=== PATIENT | male | born 1965 | race African-American/Black ===

== ENCOUNTER 2018-11-17 17:02 | Emergency (ER) | payer SELFPAY ==
[~2018-11-17] VITALS: Ht 172.7 cm; Wt 88.8 kg
[2018-11-17 17:24] VITALS: BP 166/99; PULSE 93; RESP 18; Ht 172.7 cm; Wt 88.8 kg
== END 2018-11-17 20:56 | disposition left against medical advice (07) ==
LOC: E/R 17:02
DX: Z53.21 Procedure and treatment not carried out due to patient leaving prior to being seen by health care provider (principal)

== ENCOUNTER 2019-02-23 16:12 | Emergency (ER) | payer MEDICAID ==
[~2019-02-23] VITALS: Ht 172.7 cm; Wt 81.8 kg
--- NOTE | 2019-02-23 16:14 | ERD ---
ER Documentation Chief Complaint Chief Complaint Agitation HPI The patient is a 53-year-old male, presenting to the ER because of suicidal ideation. He was found on the roof of the rehab center with suicidal gesture. He was given Suboxone and Valium and complained that he is sedated. He was therefore transferred to emergency department for further evaluation. He is quite awake, alert, agitated and in cooperative with history and physical Medical/surgical history/social history/review system: Unable to obtain because he is not cooperated Allergies Allergies: Coded Allergies: chlordiazepoxide (Verified Allergy, Unknown, 11/17/18) Physical Exam Vitals Vital Signs Date Temp Pulse Resp B/P (MAP) Pulse Ox O2 O2 Flow FiO2 Time Delivery Rate 02/23/19 94 22 125/76 99 22:00 (92) 02/23/19 98.0 77 18 118/71 100 16:55 (87) Physical Exam Const: No acute distress. Head: Atraumatic. Eyes: Normal Conjunctiva. ENT: Normal External Ears, Nose and Mouth. Neck: Full range of motion. No meningismus. Resp: Clear to auscultation bilaterally. Cardio: Regular rate and rhythm. Abd: Soft, non distended, normal bowel sounds, non tender. Skin: No petechiae or rashes. Back: No midline or flank tenderness. Ext: No cyanosis, or edema. Neur: Awake and alert. No focal deficit Psych: Agitated, noncooperative Result Diagram: 02/23/19 1643 02/23/19 1642 Results 24 hrs Laboratory Tests Test 02/23/19 16:42 02/23/19 16:43 02/23/19 17:55 02/23/19 17:56 Sodium Level 142 mmol/L Potassium Level 4.1 mmol/L Chloride Level 104 mmol/L Carbon Dioxide 29 mmol/L Level Anion Gap 9 Blood Urea 9 mg/dl Nitrogen Creatinine 1.10 mg/dl Est Glomerular > 60 mL/min Filtrat Rate mL/min Glucose Level 111 mg/dl Calcium Level 9.2 mg/dl Total Bilirubin 0.7 mg/dl Direct Bilirubin 0.00 mg/dl Indirect 0.7 mg/dl Bilirubin Aspartate Amino 37 IU/L Transf (AST/SGOT) Alanine 33 IU/L Aminotransferase (ALT/SGPT) Alkaline 70 IU/L Phosphatase Total Protein 7.9 g/dl Albumin 4.4 g/dl Globulin 3.50 g/dl Albumin/Globulin 1.25 Ratio Salicylates Level < 1.0 mg/dl Acetaminophen < 10.0 ug/ml Level Ethyl Alcohol < 10.0 mg/dl Level White Blood Count 4.8 10^3/ul Red Blood Count 5.21 10^6/ul Hemoglobin 14.5 g/dl Hematocrit 43.1 % Mean Corpuscular 82.7 fl Volume Mean Corpuscular 27.8 pg Hemoglobin Mean Corpuscular 33.6 g/dl Hemoglobin Concen t Red Cell 14.8 % Distribution Width Platelet Count 242 10^3/UL Mean Platelet 10.2 fl Volume Immature 0.400 % Granulocytes % Neutrophils % 46.7 % Lymphocytes % 39.0 % Monocytes % 7.7 % Eosinophils % 5.8 % Basophils % 0.4 % Nucleated Red 0.0 /100WBC Blood Cells % Immature 0.020 10^3/ul Granulocytes # Neutrophils # 2.2 10^3/ul Lymphocytes # 1.9 10^3/ul Monocytes # 0.4 10^3/ul Eosinophils # 0.3 10^3/ul Basophils # 0.0 10^3/ul Nucleated Red 0.0 10^3/ul Blood Cells # Urine Color YELLOW Urine Clarity CLEAR Urine pH 7.0 Urine Specific 1.018 [place] Urine Ketones NEGATIVE mg/dL Urine Nitrite NEGATIVE mg/dL Urine Bilirubin NEGATIVE mg/dL Urine 1+ mg/dL Urobilinogen Urine Leukocyte NEGATIVE Tera/ul Esterase Urine Hemoglobin NEGATIVE mg/dL Urine Glucose NEGATIVE mg/dL Urine Total NEGATIVE mg/dl Protein Urine Opiates NEGATIVE Screen Urine NEGATIVE Barbiturates Urine POSITIVE Amphetamines Screen Urine POSITIVE Benzodiazepines Screen Urine Cocaine POSITIVE Screen Urine POSITIVE Cannabinoids Current Medications Medications Dose Sig/William Start Time Status Last (Trade) Ordered Route PRN Stop Time Admin Dose Reason Admin Lorazepam 2 mg ONCE ONCE 02/23/19 DC 02/23/19 (Ativan) IM 18:00 18:26 02/23/19 18:01 Haloperidol 5 mg ONCE ONCE 02/23/19 DC 02/23/19 (Haldol) IM 18:00 22:00 02/23/19 18:01 50 mg ONCE ONCE 02/23/19 DC 02/23/19 Diphenhydrami IM 18:00 18:26 ne HCl 02/23/19 18:01 (Benadryl) Olanzapine 10 mg Q12H PRN 02/23/19 (Zyprexa) IM AGITATION 22:00 Lorazepam 2 mg Q12 IM 02/23/19 DC (Ativan) 22:00 02/23/19 22:00 50 mg Q12 IM 02/23/19 DC Diphenhydrami 22:00 ne HCl 02/23/19 22:00 (Benadryl) Lorazepam 2 mg Q12H PRN 02/23/19 02/23/19 (Ativan) IM AGITATION 22:00 22:00 50 mg Q12H PRN 02/23/19 02/23/19 Diphenhydrami IM AGITATION 22:00 22:00 ne HCl (Benadryl) Procedures/MDM UA, UDS pending MEDICAL MAKING DECISION: The patient is a 53-year-old male, presenting with acute psychosis. He did not respond to counseling, he was treated with Benadryl 50 mg IM, Haldol 5 mg IM, Ativan 2 mg IM with good response. He was resting for a few hours. He was evaluated by telepsychiatrist who put on a 5150 hold, when he wake up he becomes more agitated, he was treated with Zyprexa 10 mg IM and Ativan 2 mg IM as recommended by psychiatrist The differential diagnoses considered include but are not limited to drug- induced psychosis, psychosis, psychiatric illness, medical noncompliance Departure Diagnosis: Primary Impression: Psychosis Condition: Stable Comments The psychiatrist medications were ordered He is clear for psychiatric evaluation and admission KESHAV MARX MD Feb 23, 2019 16:14
[2019-02-23 16:55] VITALS: Ht 172.7 cm; Wt 81.8 kg
--- NOTE | 2019-02-23 17:29 | PSY ---
Date/Time of Note Date/Time of Note DATE: 02/23/19 TIME: 17:04 Psychiatric Subjective Eval Consent Pt consented to telemedicine: Yes Subjective Evaluation Chief Complaint: PT bought to the ED by RA for possible overdose. History of present illness 53 yo male BIB EMS from a drug rehab. Pt has a hx opiate use disorder; at the rehab he was started on suboxone and valium. Pt was found standing on the edge of the roof today. In ED pt is agitated, he refused to speak to me unless he would be allowed to stand up, c/o he is drowsy and he is falling asleep. Pt is irritable, tangential, demands to be allowed to stand up so he wouldn't fall asleep; however, he does not appear sedated at all, rather agitated and loud, pressured speech. Then advised him, it is safe for him to stay in bed for his own safety he refused to speak to me. Past psychiatric history unknown Medical history Problems Medical Problems: (1) Patient left after triage Status: Acute Allergies: Coded Allergies: chlordiazepoxide (Verified Allergy, Unknown, 11/17/18) Substance Abuse Substance abuse history: Yes Prior substance abuse treatmen: Yes Social History Marital status: Psychiatric Objective Eval Mental Status Examination: Appearance: Disheveled Eye Contact: Fair Psychomotor Activity: Agitated Behavior: Agitated Speech: Pressured AFFECT: Libile Mood: Irritable Though Process: Tangential Suicidal: Yes Cognition: Alert Insight: Impared Judgement: Impared Laboratory Results Laboratory Tests Test 02/23/19 16:43 White Blood Count 4.8 10^3/ul Red Blood Count 5.21 10^6/ul Hemoglobin 14.5 g/dl Hematocrit 43.1 % Mean Corpuscular Volume 82.7 fl Mean Corpuscular Hemoglobin 27.8 pg Mean Corpuscular Hemoglobin Concent 33.6 g/dl Red Cell Distribution Width 14.8 % Platelet Count 242 10^3/UL Mean Platelet Volume 10.2 fl Immature Granulocytes % 0.400 % Neutrophils % 46.7 % Lymphocytes % 39.0 % Monocytes % 7.7 % Eosinophils % 5.8 % Basophils % 0.4 % Nucleated Red Blood Cells % 0.0 /100WBC Immature Granulocytes # 0.020 10^3/ul Neutrophils # 2.2 10^3/ul Lymphocytes # 1.9 10^3/ul Monocytes # 0.4 10^3/ul Eosinophils # 0.3 10^3/ul Basophils # 0.0 10^3/ul Nucleated Red Blood Cells # 0.0 10^3/ul Assessment and Plan Assessment/Diagnosis Diagnosis UNSPECIFIED MOOD DISORDER Recommendation/Plan Medication Management FOR AGITATION: ZYPREXA 10 MG + ATIVAN 2 MG + BENADRYL 50 MG IM PRN Q 12 HRS Multiple antipsychotics: Yes Discharge Disposition: Psychiatric inpatient Legal Status: Place involuntary hold Other D/W SAURABH PADRON MD Feb 23, 2019 17:29
[2019-02-23] MEDS ORDERED: DIPHENHYDRAMINE 50 MG INJ IM ONE (18:00)
[2019-02-23] MEDS ORDERED: HALOPERIDOL 5 MG INJ IM ONE (18:00)
[2019-02-23] MEDS ORDERED: LORAZEPAM 2 MG INJ IM ONE (18:00)
[2019-02-23] MEDS ORDERED: LORAZEPAM 2 MG INJ IM SCH (22:00)
[2019-02-23] MEDS ORDERED: DIPHENHYDRAMINE 50 MG INJ IM SCH (22:00)
[2019-02-23] MEDS ORDERED: DIPHENHYDRAMINE 50 MG INJ IM PRN (22:00)
[2019-02-23] MEDS ORDERED: OLANZAPINE 10 MG VIAL IM PRN (22:00)
[2019-02-23] MEDS ORDERED: LORAZEPAM 2 MG INJ IM PRN (22:00)
[2019-02-24 00:10] VITALS: BP 139/105; PULSE 82; RESP 18
== END 2019-02-24 00:15 | disposition short-term general hospital (02) ==
LOC: E/R 16:12
DX: F23 Brief psychotic disorder (principal)
CPT/HCPCS: 36415; 80053; 80307; 81003; 85025; 96372; J1200; J1630; J2060; Z7502; Z7610